=== PATIENT | female | born 1955 | race Caucasian/White ===

== ENCOUNTER → 2016-05-14 | Outpatient (CLI) | payer MEDICAID | LOC: CIMAGING 07:39 | PROVIDERS: ATTEND Internal Medicine | DX: R10.11 Right upper quadrant pain (principal); E11.9 Type 2 diabetes mellitus without complications; I10 Essential (primary) hypertension; E03.9 Hypothyroidism, unspecified; B18.2 Chronic viral hepatitis C | CPT/HCPCS: 76700-PO ==

== ENCOUNTER 2017-02-12 09:55 | Emergency (ER) | payer MEDICAID ==
[2017-02-12 10:07] VITALS: BP 209/108; PULSE 91; RESP 20; TEMP 98.2; O2SAT 94
--- NOTE | 2017-02-12 10:22 | EDPHY ---
H & P Stated Complaint: right hand pain and swelling after fall 2 days ago Time Seen by Provider: 02/12/17 10:10 HPI/ROS: CHIEF COMPLAINT: Right hand pain HISTORY OF PRESENT ILLNESS: The patient is a 61-year-old female who comes to the emergency department complaining of pain in her right hand. She states that 2 days ago she fell off of her patio and landed on top of her hand. She has had pain and swelling and bruising laterally ever since. She does have normal range of motion in her fingers and wrist. She denies other injuries. REVIEW OF SYSTEMS: Constitutional: denies: chills, fever, recent illness, recent injury EENTM: denies: blurred vision, double vision, nose congestion Respiratory: denies: cough, shortness of breath Cardiac: denies: chest pain, irregular heart rate, lightheadedness, palpitations Gastrointestinal/Abdominal: denies: abdominal pain, diarrhea, nausea, vomiting, blood streaked stools Genitourinary: denies: dysuria, frequency, hematuria, pain Musculoskeletal: See HPI Skin: denies: lesions, rash, jaundice, bruising Neurological: denies: headache, numbness, paresthesia, tingling, dizziness, weakness Hematologic/Lymphatic: denies: blood clots, easy bleeding, easy bruising Immunologic/allergic: denies: HIV/AIDS, transplant EXAM: GENERAL: Well-appearing, well-nourished and in no acute distress. HEAD: Atraumatic, normocephalic. EYES: Pupils equal round and reactive to light, extraocular movements intact, sclera anicteric, conjunctiva are normal. ENT: TMs normal, nares patent, oropharynx clear without exudates. Moist mucous membranes. NECK: Normal range of motion, supple without lymphadenopathy or JVD. LUNGS: Breath sounds clear to auscultation bilaterally and equal. No wheezes rales or rhonchi. HEART: Regular rate and rhythm without murmurs, rubs or gallops. ABDOMEN: Soft, nontender, normoactive bowel sounds. No guarding, no rebound. No masses appreciated. BACK: No CVA tenderness, no spinal tenderness, step-offs or deformities EXTREMITIES: Significant bruising and swelling to right hand over the palm and dorsal aspect. Tenderness over 5th metacarpal bone. Normal capillary refill. Normal sensation and movement fingers. NEUROLOGICAL: Cranial nerves II through XII grossly intact. Normal speech, normal gait. 5/5 strength, normal movement in all extremities, normal sensation PSYCH: Normal mood, normal affect. SKIN: Warm, dry, normal turgor, no visible rashes or lesions. Source: Patient Exam Limitations: No limitations - Personal History Current Tetanus/Diphtheria Vaccine: Unsure Current Tetanus Diphtheria and Acellular Pertussis (TDAP): Unsure - Medical/Surgical History Hx Asthma: No Hx Chronic Respiratory Disease: No Hx Diabetes: Yes Hx Cardiac Disease: Yes Hx Renal Disease: No Hx Cirrhosis: No Hx Alcoholism: No Hx HIV/AIDS: No Hx Splenectomy or Spleen Trauma: No Other PMH: DM. Hep C. HTN. Hypothyroid. Hysterectomy - Family History Significant Family History: No pertinent family hx - Social History Smoking Status: Current every day smoker Alcohol Use: Sober Drug Use: None Constitutional: Initial Vital Signs Temperature (C) 36.8 C 02/12/17 10:06 Heart Rate 91 02/12/17 10:06 Respiratory Rate 20 02/12/17 10:06 Blood Pressure 209/108 H 02/12/17 10:06 O2 Sat (%) 94 02/12/17 10:06 O2 Delivery Mode Room Air Allergies/Adverse Reactions: No Known Allergies Allergy (Verified 02/12/17 10:04) Home Medications: Medication Instructions Recorded Citalopram 01/16/14 Glimepiride 01/16/14 Levothyroxine Sodium 01/16/14 Metformin 1000 mg 01/16/14 HCTZ (*) 02/12/17 Lisinopril 02/12/17 Medical Decision Making - Diagnostics Imaging Results: Imaging Impressions Hand X-Ray 02/12/17 10:00 Impression: Comminuted possibly intra-articular fracture through the base of the 5th metacarpal. Imaging: Discussed imaging studies w/ order desk caller Radiologist Procedures: Procedure: Splint placement. A ulnar gutter splint was applied. After application of the splint I returned and re-examined the patient. The splint was adequately immobilizing the joint and distal to the splint the patient's circulation and sensation was intact. ED Course/Re-evaluation: Patient has a fracture at the base of her 5th metacarpal. It is difficult to tell whether there is a new or old fracture of the shaft as well. I will place her in an ulnar gutter splint and have her follow up with Hand surgery for definitive treatment. This may involve the articular surface. Differential Diagnosis: Partial list of the Differential diagnosis considered include but were not limited to; boxer's fracture, wrist injury, joint injury and although unlikely based on the history and physical exam, I also considered infection, non accidental trauma. I discussed these differential diagnoses and the plan with the patient as well as the usual and expected course. The patient understands that the diagnosis is provisional and that in medicine we are not always correct and that further workup is often warranted. Usual and customary warnings were given. All of the patient's questions were answered. The patient was instructed to return to the emergency department should the symptoms at all worsen or return, otherwise to followup with the physician as we discussed. Departure - Departure Disposition: Home, Routine, Self-Care Clinical Impression: Fracture of fifth metacarpal bone of right hand Qualifiers: Encounter type: initial encounter Fracture type: closed Metacarpal location: base Fracture alignment: displaced Qualified Code(s): S62.316A - Displaced fracture of base of fifth metacarpal bone, right hand, initial encounter for closed fracture Condition: Fair Instructions: Hand Fracture (ED) Referrals: Moises Liao MD [Medical Doctor] - As per Instructions
== END 2017-02-12 10:43 | disposition home or self-care (01) ==
LOC: CED 09:55
DX: S62.316A Displaced fracture of base of fifth metacarpal bone, right hand, initial encounter for closed fracture (principal); I10 Essential (primary) hypertension; E11.9 Type 2 diabetes mellitus without complications; F17.200 Nicotine dependence, unspecified, uncomplicated; Z79.84 Long term (current) use of oral hypoglycemic drugs; W19.XXXA Unspecified fall, initial encounter
CPT/HCPCS: 73130-PO

== ENCOUNTER → 2017-06-24 | Outpatient (CLI) | payer MEDICAID | LOC: CIMAGING 08:25 | PROVIDERS: ATTEND Internal Medicine | DX: B18.2 Chronic viral hepatitis C (principal); K76.0 Fatty (change of) liver, not elsewhere classified | CPT/HCPCS: 76705-PO ==